=== PATIENT | male | born 1980 | race Hispanic/Latino ===

== ENCOUNTER 2017-12-30 22:34 | Emergency (ER) | payer SELFPAY ==
[2017-12-30] MEDS ORDERED: Ketorolac Tromethamine 60 MG/2 ML VIAL ONE (22:50)
[2017-12-30] MEDS ORDERED: Bupivacaine 0.5% 10 ML VIAL ONE (23:22)
--- NOTE | 2017-12-30 23:23 | RAD ---
LEFT RIB SERIES THREE VIEWS: INDICATIONS: Post traumatic chest pain. FINDINGS: Minimal cortical irregularity is seen at the inferolateral left chest wall, localizing to the region of the left 8th and 9th ribs. There is no obvious pleural-based density of the left chest. No pneum othorax of the left chest identified. IMPRESSION: Essentially nondisplaced rib fractures at the left 8th and 9th ribs are suggested. POS: [facility]
== END 2017-12-31 00:44 | disposition home or self-care (01) ==
LOC: SCSER 22:34
DX: S22.42XA Multiple fractures of ribs, left side, initial encounter for closed fracture (principal); Z87.891 Personal history of nicotine dependence; W50.0XXA Accidental hit or strike by another person, initial encounter; Y93.61 Activity, american tackle football
CPT/HCPCS: 20552; 96372; J1885; J3490